=== PATIENT | female | born 1955 | race Caucasian/White ===

== ENCOUNTER 2018-11-24 15:22 | Emergency (ER) | payer OTHER ==
[2018-11-24 15:33] VITALS: BP 142/77; PULSE 106; O2SAT 96
[2018-11-24] MEDS ORDERED: XYLOCAINE 1% HCL 20 ML MDV ONE (16:01)
--- NOTE | 2018-11-24 16:37 | ERPHSYRPT ---
- History of Present Illness Source: patient Exam Limitations: no limitations Patient Subjective Stated Complaint: "I walked into a metal gait in the kitchen " it did not knock me out, I did not fall down". Triage Nursing Assessment: AAox3, color good, walked in, approx 3 cm laceration noted to top of forehead, minimal acrtive bleeding noted, lacerations cleansed with sterile gauze and nacl and antibacterial soap, Denies other injuries, denies loss of consciousness, perrla, resp easy, lungs clear. States last tetanus approx 5 years ago. Also c/o headache at this time, "vision ok" Physician History: Pt is a 63 y/o female that was working in the kitchen, and opened a gate, to get under. She tried to get under it, but her head hit the gate, and she had laceration on the top of her head. Pt presented to the ER. Pt denies all other complains. She did have a tetanus shot 5 years ago. Timing/Duration: today Quality: burning, painful Severity: mild Location: scalp Associated Symptoms: denies symptoms Allergies/Adverse Reactions: lisinopril Allergy (Mild, Verified 10/15/14 16:42) pear Allergy (Mild, Verified 06/24/17 10:02) Ekjvsee-Xju-Suk Reductase Inhibitor Allergy (Mild, Verified 10/15/14 16:42) Sulfa (Sulfonamide Antibiotics) Allergy (Mild, Verified 10/15/14 16:42) tuberculin, purified protein deriva [Tuberculin,Purif.Prot.Deriv.] Allergy (Mild , Verified 10/15/14 16:42) losartan [From Wyzaar] Adverse Reaction (Mild, Verified 06/24/17 10:02) Home Medications: Amlodipine Besylate 10 mg [Norvasc 10 MG] 10 mg PO DAILY 02/02/13 [History] Metformin HCl 850 mg [Glucophage 850 MG] 850 mg PO BID 02/02/13 [History] Aspirin 81 mg PO DAILY 10/28/13 [History] HydrALAzine HCL 25 MG TAB [Apresoline 25 MG TABLET] 50 mg PO BID 10/28/13 [History] Oxybutynin Chloride Xl 5 mg [Ditropan XL 5 MG] 5 mg PO BID 10/28/13 [ History] Fexofenadine HCl [Yelena Allergy] 60 mg PO DAILY PRN PRN 06/24/17 [History] Naproxen 0 mg Q8H PRN PRN 06/24/17 [History] Ranitidine HCl [Zantac] 150 mg PO DAILY PRN PRN 06/24/17 [History] Hx Tetanus, Diphtheria Vaccination/Date Given: Yes ("5 years ago") Hx Influenza Vaccination/Date Given: Yes Hx Pneumococcal Vaccination/Date Given: Yes Immunizations Up to Date: Yes - Review of Systems Constitutional: No Fever, No Chills Eyes: No Symptoms Ears, Nose, & Throat: No Symptoms Skin: Other (Laceration of 4cm of the scalp. Pain present.) - Past Medical History Pertinent Past Medical History: Yes Neurological History: No Pertinent History ENT History: Cataracts, Macular Degeneration Cardiac History: High Cholesterol, Hypertension Respiratory History: Asthma Endocrine Medical History: Diabetes Type II, Hypothyroidism Musculoskeletal History: Osteoarthritis GI Medical History: No Pertinent History, GERD History: No Pertinent History Psycho-Social History: No Pertinent History Female Reproductive Disorders: No Pertinent History Other Medical History: THYROID DISEASE - Past Surgical History Past Surgical History: Yes Neuro Surgical History: No Pertinent History Cardiac: No Pertinent History Gastrointestinal: Cholecystectomy Genitourinary: No Pertinent History Female Surgical History: Hysterectomy, Tubal Ligation Other Surgical History: partial thyroid gland - Social History Smoking Status: Never smoker Exposure to second hand smoke: Yes Alcohol Use: None Drug Use: none Patient Lives Alone: No Significant Family History: diabetes - Female History Hx Last Menstrual Period: na Hx Now: No - Nursing Vital Signs Nursing Vital Signs: Initial Vital Signs Temperature 98.2 F 11/24/18 15:23 Pulse Rate 106 H 11/24/18 15:23 Respiratory Rate 22 11/24/18 15:23 Blood Pressure 142/77 11/24/18 15:23 O2 Sat by Pulse Oximetry 96 11/24/18 15:23 Pain Scale Pain Intensity 8 - Physical Exam General Appearance: no apparent distress, alert Eye Exam: PERRL/EOMI, eyes nml inspection Ears, Nose, Throat Exam: normal ENT inspection, pharynx normal, moist mucous membranes Neck Exam: normal inspection, non-tender, supple, full range of motion Neurologic Exam: alert, oriented x 3, cooperative, normal mood/affect, sensation nml, No motor deficits Skin Exam: laceration (4cm of the top of the head) SpO2 Interpretation: normal SpO2: 96 O2 Delivery: Room Air Procedures - Laceration/Wound Repair Upper Anterior Head Wound Location: head Wound Length (cm): 4 Wound Explored: contaminated Irrigated: Yes Hibiclens Prep: Yes Anesthesia: 1% Lidocaine Wound Debrided: minimal Wound Repaired With: Daria (4 daria) Sterile Dressing Applied?: Yes - Course Nursing assessment & vital signs reviewed: Yes Ordered Tests: Medication Summary Discontinued Medications Generic Name Dose Route Start Last Admin Trade Name Mejia PRN Reason Stop Dose Admin Lidocaine HCl Confirm 11/24/18 16:01 Xylocaine 1% Hcl 20 Ml Mdv Administered 11/24/18 16:02 Dose 1 ml .R[employer]TE .[employer]MED ONE - Progress Progress: unchanged Progress Note: 11/24/18 16:41 Pt presented to the ED with a laceration. The area was cleaned and washed. I numbed the pt with 3ml of Lido. When she was comfortable 4 daria placed. The pt tolerated procedure well. A sterile dressing and Bactroban oint were placed. ABX will be e-scribed for the pt. Discussed with : Adalberto Will see patient in: office Counseled pt/family regarding: need for follow-up (F/U in 7-10 days, for daria removal.) - Departure Time of Disposition: 16:45 Departure Disposition: Home Clinical Impression: Laceration of scalp Condition: Stable Critical Care Time: No Referrals: AMARJIT RUBALCAVA MD [Primary Care Provider] - Instructions: Laceration Repair With [place] ([place]) Additional Instructions: Finish ABX as ordered. Keep dressing clean and dry. F/U with PCP in 7-10 days for daria removal. Prescriptions: Cephalexin Mh 500 mg [Keflex 500 mg] 500 mg PO TID #30 capsule
[2018-11-25] MEDS ORDERED: XYLOCAINE 1% HCL 20 ML MDV IJ ONE (08:55)
== END 2018-11-24 17:40 | disposition home or self-care (01) ==
LOC: ED 15:22
DX: S01.01XA Laceration without foreign body of scalp, initial encounter (principal); W22.09XA Striking against other stationary object, initial encounter; Y93.9 Activity, unspecified; Y92.000 Kitchen of unspecified non-institutional (private) residence as the place of occurrence of the external cause; R51 Headache
CPT/HCPCS: 12002; 99283

== ENCOUNTER 2019-03-13 08:58 | Emergency (ER) | payer OTHER ==
[2019-03-13 09:46] VITALS: PULSE 80; O2SAT 99
[2019-03-13] MEDS ORDERED: TYLENOL 325 MG PO STA (09:57)
--- NOTE | 2019-03-13 11:15 | ERPHSYRPT ---
- History of Present Illness Time Seen by Provider: 03/13/19 10:00 Source: patient Exam Limitations: clinical condition Patient Subjective Stated Complaint: pt here for pain left hand and wrist, pt was walking dog and it went after a rabbit and pulled pt down, Triage Nursing Assessment: pt alert, walked in, resp easy, skin w/d/p. has bruising to right arm and bruising and swelling to left wrist, has strong radial pulse Physician History: PATIENT STATES WHILE WALKING HER SON'S DOG, WAS PULLED BY LEASE AND FELL TO GROUND SUSTAINED INJURY TO HER LEFT WRIST. PATIENT COMPLAINS OF PAIN OR SWELLING. DENIES ASSOCIATED HEAD, NECK OR BACK INJURY. Occurred: just prior to arrival Method of Injury: direct blow Quality: constant Severity of Pain-Max: moderate Severity of Pain-Current: moderate Extremities Pain Location: wrist: left Modifying Factors: Improves With: movement Associated Symptoms: none Allergies/Adverse Reactions: lisinopril Allergy (Mild, Verified 03/13/19 09:46) pear Allergy (Mild, Verified 03/13/19 09:46) Hxatjnw-Wwx-Wxw Reductase Inhibitor Allergy (Mild, Verified 03/13/19 09:46) Sulfa (Sulfonamide Antibiotics) Allergy (Mild, Verified 03/13/19 09:46) tuberculin, purified protein deriva [Tuberculin,Purif.Prot.Deriv.] Allergy (Mild , Verified 03/13/19 09:46) losartan [From Cozaar] Adverse Reaction (Mild, Verified 03/13/19 09:46) Home Medications: Amlodipine Besylate 10 mg [Norvasc 10 MG] 10 mg PO DAILY 02/02/13 [History] Metformin HCl 850 mg [Glucophage 850 MG] 850 mg PO BID 02/02/13 [History] Aspirin 81 mg PO DAILY 10/28/13 [History] HydrALAzine HCL 25 MG TAB [Apresoline 25 MG TABLET] 50 mg PO BID 10/28/13 [History] Oxybutynin Chloride Xl 5 mg [Ditropan XL 5 MG] 5 mg PO BID 10/28/13 [ History] Fexofenadine HCl [Yelena Allergy] 60 mg PO DAILY PRN PRN 06/24/17 [History] Naproxen 0 mg Q8H PRN PRN 06/24/17 [History] raNITIdine HCl [Zantac] 150 mg PO DAILY PRN PRN 06/24/17 [History] Hx Tetanus, Diphtheria Vaccination/Date Given: Yes ("5 years ago") Hx Influenza Vaccination/Date Given: Yes Hx Pneumococcal Vaccination/Date Given: Yes Immunizations Up to Date: Yes - Review of Systems Constitutional: No Symptoms Musculoskeletal: Injury, Joint Pain, Joint Swelling - Past Medical History Pertinent Past Medical History: Yes Neurological History: No Pertinent History ENT History: Cataracts, Macular Degeneration Cardiac History: High Cholesterol, Hypertension Respiratory History: Asthma Endocrine Medical History: Diabetes Type II, Hypothyroidism Musculoskeletal History: Osteoarthritis GI Medical History: GERD History: No Pertinent History Psycho-Social History: No Pertinent History Female Reproductive Disorders: No Pertinent History Other Medical History: THYROID DISEASE,shingles - Past Surgical History Past Surgical History: Yes Neuro Surgical History: No Pertinent History Cardiac: No Pertinent History Gastrointestinal: Cholecystectomy Genitourinary: No Pertinent History Female Surgical History: Hysterectomy, Tubal Ligation Other Surgical History: partial thyroid gland - Social History Smoking Status: Never smoker Exposure to second hand smoke: Yes Alcohol Use: None Drug Use: none Patient Lives Alone: No Significant Family History: diabetes - Female History Hx Last Menstrual Period: post Hx Now: No - Nursing Vital Signs Nursing Vital Signs: Initial Vital Signs Temperature 97.0 F 03/13/19 09:40 Pulse Rate 80 03/13/19 09:40 Respiratory Rate 16 03/13/19 09:40 Blood Pressure 128/77 03/13/19 09:40 O2 Sat by Pulse Oximetry 99 03/13/19 09:40 Pain Scale Pain Intensity 8 - Physical Exam General Appearance: no apparent distress Wrist Exam: ecchymosis (OVER NAVICULAR LEFT WRIST), limited ROM, pain, soft tissue tenderness Neuro/Tendon Exam: normal sensation Mental Status Exam: alert, oriented x 3 SpO2 Interpretation: normal SpO2: 99 Procedures - Splinting Location of Splint: Left, Wrist Type of Splint: Other (THUMB SPICAL ORTHOGLASS SPLINT) Pre-Proc Neuro Vasc Exam: normal Post-Proc Neuro Vasc Exam: neurovascular intact - Radiology Exams Left Wrist X-ray Interpretation: Interpreted by me (NONDISPLACED LEFT NAVICULAR FRACTURE) Ordered Tests: Active Orders 24 hr Category Date Time Status Splint STAT Care 03/13/19 10:54 Ordered WRIST (MIN 3 VIEWS) Stat Exams 03/13/19 09:58 Taken Medication Summary Discontinued Medications Generic Name Dose Route Start Last Admin Trade Name Mejia PRN Reason Stop Dose Admin Acetaminophen 650 mg 03/13/19 09:57 Tylenol 325 Mg PO 03/13/19 09:58 STAT STA - Progress Progress Note: 03/13/19 11:17 ORTHOGLASS LEFT THUMB SPICA SPLINT, REFUSES ANALGESICS 03/13/19 11:21 Counseled pt/family regarding: diagnosis, need for follow-up, rad results - Departure Departure Disposition: Home Clinical Impression: LEFT NAVICULAR FRACTUE Condition: Stable Critical Care Time: No Referrals: [facility] [Primary Care Provider] - Additional Instructions: TYLENOL OR MOTRIN NEEDED FOR PAIN. FOLLOWUP WITH [facility] THURSDAY MARCH 14, 2019 AT 9AM, CALL FOR APPOINTMENT , TAKE COPY OF XRAY DISC TO APPOINTMENT
[2019-03-13 11:28] VITALS: BP 131/74
[2019-03-13] MEDS ORDERED: TYLENOL 325 MG ONE (11:45)
--- NOTE | 2019-03-13 20:18 | XRAY ---
Indication: Pain and bruising following fall. Comparison: February 02, 2013. 3 views of the left wrist demonstrates again osteopenia with progressive worsening advanced 1st metacarpal multangular degenerative changes. Mild soft tissue swelling. No other bony, articular, or soft tissue abnormalities.
== END 2019-03-13 12:10 | disposition home or self-care (01) ==
LOC: ED 08:58
DX: S62.002A Unspecified fracture of navicular [scaphoid] bone of left wrist, initial encounter for closed fracture (principal); W54.8XXA Other contact with dog, initial encounter
CPT/HCPCS: 29126; 73110; 99283; A9270-GY

== ENCOUNTER 2020-03-27 10:24 | Emergency (ER) | payer OTHER, MEDICARE ==
--- NOTE | 2020-03-27 10:28 | ERPHSYRPT ---
- History of Present Illness Time Seen by Provider: 03/27/20 10:28 Historian: patient Exam Limitations: no limitations Physician History: This is a 64-year-old white female who has a history of hypertension, diabetes and has had mini strokes in the past. She also takes Plavix. Patient presents with shortness of breath and mild chest pain after being exposed to raid bedbug and harris fogger. Patient set the fogger is off and breathe in some of the chemicals. She immediately began having some shortness of breath, felt as though she was panicking and then noticed some chest pain present. She arrives to the emergency department with less chest pain but still mildly present, and less shortness of breath but still present. Patient denies abdominal pain and denies nausea vomiting diarrhea. Patient did not have any chest pain prior to her exposure to the fogger. She did not have shortness of breath prior to the fogger. Poison control was notified and they stated that she did not need to be observed for an extended period of time she just needed her symptoms evaluated and managed accordingly. Patient has no known cardiac history. Timing/Duration: today Activities at Onset: other (Accidental exposure to raid insect exposure) Location: substernal, central Chest Pain Radiation: no radiation Severity of Pain-Max: mild Severity of Pain-Current: mild Associated Symptoms: shortness of breath, cough Prior Chest Pain/Cardiac Workup: no prior chest pain, no prior cardiac workup, non-cardiac Nitro Today/Relief: no nitro taken today Aspirin Treatment Today: no aspirin today Allergies/Adverse Reactions: lisinopril Allergy (Mild, Verified 03/27/20 11:02) pear Allergy (Mild, Verified 03/27/20 11:02) [id number] Reductase Inhibitor Allergy (Mild, Verified 03/27/20 11:02) Sulfa (Sulfonamide Antibiotics) Allergy (Mild, Verified 03/27/20 11:02) tuberculin, purified protein deriva [Tuberculin,Purif.Prot.Deriv.] Allergy (Mild, Verified 03/27/20 11:02) losartan [From Cozaar] Adverse Reaction (Mild, Verified 03/27/20 11:02) Home Medications: Amlodipine Besylate 10 mg [Norvasc 10 MG] 10 mg PO DAILY 02/02/13 [History] Metformin HCl 850 mg [Glucophage 850 MG] 850 mg PO BID 02/02/13 [History] Aspirin 81 mg PO DAILY 10/28/13 [History] HydrALAzine HCL 25 MG TAB [Apresoline 25 MG TABLET] 50 mg PO BID 10/28/13 [History] Fexofenadine HCl [Yelena Allergy] 60 mg PO DAILY PRN PRN 06/24/17 [History] Naproxen 0 mg Q8H PRN PRN 06/24/17 [History] Clopidogrel Bisulfate 75 mg [PLAVIX 75 MG Tablet] 75 mg PO DAILY 03/27/20 [History] Oxybutynin Chloride Xl 5 mg [Ditropan XL 5 MG] 5 mg PO DAILY 03/27/20 [History] Oxymetazoline HCl [Nasal Mondovi] 30 ml NS DAILY 03/27/20 [History] Hx Tetanus, Diphtheria Vaccination/Date Given: Yes ("5 years ago") Hx Influenza Vaccination/Date Given: Yes Hx Pneumococcal Vaccination/Date Given: No Travel Risk - International Travel Have you traveled outside of the country in past 3 weeks: No - Coronavirus Screening Are you exhibiting any of the following symptoms?: Yes Symptoms: Cough: New Onset, Shortness of Breath Close contact with a COVID-19 positive Pt in past 14-21 Days: No - Review of Systems Constitutional: No Symptoms Eyes: No Symptoms Ears, Nose, & Throat: No Symptoms Respiratory: Cough, Dyspnea Cardiac: Chest Pain Abdominal/Gastrointestinal: No Symptoms Genitourinary Symptoms: No Symptoms Musculoskeletal: No Symptoms Skin: No Symptoms Neurological: No Symptoms Psychological: No Symptoms Endocrine: No Symptoms Hematologic/Lymphatic: No Symptoms Immunological/Allergic: No Symptoms All Other Systems: Reviewed and Negative - Past Medical History Pertinent Past Medical History: No Neurological History: No Pertinent History ENT History: No Pertinent History, Cataracts, Macular Degeneration Cardiac History: High Cholesterol, Hypertension Respiratory History: No Pertinent History, Asthma Endocrine Medical History: Diabetes Type II, Hypothyroidism Musculoskeletal History: No Pertinent History, Osteoarthritis GI Medical History: No Pertinent History, GERD History: No Pertinent History Psycho-Social History: No Pertinent History Female Reproductive Disorders: No Pertinent History Other Medical History: THYROID DISEASE,shingles - Past Surgical History Past Surgical History: Yes Neuro Surgical History: No Pertinent History Cardiac: No Pertinent History Respiratory: No Pertinent History Gastrointestinal: Cholecystectomy Genitourinary: No Pertinent History Musculoskeletal: No Pertinent History Female Surgical History: Hysterectomy, Tubal Ligation Other Surgical History: Partial Thyroidectomy unknown side. - Social History Smoking Status: Never smoker Exposure to second hand smoke: Yes Alcohol Use: None Drug Use: none Patient Lives Alone: No Significant Family History: diabetes - Nursing Vital Signs Nursing Vital Signs: Initial Vital Signs Temperature 97.9 F 03/27/20 10:25 Pulse Rate 115 H 03/27/20 10:25 Respiratory Rate 24 03/27/20 10:25 Blood Pressure 111/81 03/27/20 10:25 O2 Sat by Pulse Oximetry 95 03/27/20 10:25 Pain Scale Pain Intensity 5 - Physical Exam General Appearance: mild distress, alert, anxiety Eye Exam: PERRL/EOMI, eyes nml inspection Ears, Nose, Throat Exam: normal ENT inspection, moist mucous membranes Neck Exam: normal inspection, non-tender, supple, full range of motion Respiratory Exam: normal breath sounds, chest tenderness, lungs clear, airway intact, No respiratory distress, No rhonchi, No wheezing, No stridor Cardiovascular Exam: tachycardia Gastrointestinal/Abdomen Exam: soft, normal bowel sounds, No tenderness Pelvic Exam: not done Rectal Exam: not done Back Exam: normal inspection, normal range of motion, No CVA tenderness, No vertebral tenderness Extremity Exam: normal inspection, normal range of motion, pelvis stable Neurologic Exam: alert, oriented x 3, cooperative, director public II-XII nml as tested, nml cerebellar function, nml station & gait, sensation nml Skin Exam: normal color, warm, dry Lymphatic Exam: No adenopathy SpO2 Interpretation: normal O2 Delivery: Room Air - Course Nursing assessment & vital signs reviewed: Yes EKG Interpreted by Me: RATE, Sinus Tach, NORMAL AXIS, LAFB, NORMAL INTERVALS, NORMAL QRS, Other (When compared to EKG dated May 24, 2019, there is new sinus tachycardia, new left anterior fascicular block and new borderline ST elevation in lateral leads.) Ordered Tests: Active Orders 24 hr Category Date Time Status Crude Oil Driver STAT Care 03/27/20 10:29 Active EKG-ER Only STAT Care 03/27/20 10:28 Active IV Insertion STAT Care 03/27/20 10:28 Active Oxygen-ED Only Nasal Cannula 2 lpm Care 03/27/20 11:16 Active Pulse Oximetry (ED) STAT Care 03/27/20 10:28 Active CHEST 1 VIEW (PORTABLE) Stat Exams 03/27/20 10:28 Completed CBC W DIFF Stat Lab 03/27/20 10:30 Completed CMP Stat Lab 03/27/20 10:30 Completed D-DIMER QUANTITATIVE Stat Lab 03/27/20 10:30 Completed Lactic Acid Stat Lab 03/27/20 11:19 Completed Lactic Acid Stat Lab 03/27/20 13:23 Completed NT PRO BNP Stat Lab 03/27/20 10:30 Completed PROTIME WITH INR Stat Lab 03/27/20 10:30 Completed TROPONIN Q3H Lab 03/27/20 10:30 Completed TROPONIN Q3H Lab 03/27/20 13:45 Completed TROPONIN Q3H Lab 03/27/20 16:30 Ordered TROPONIN Q3H Lab 03/27/20 19:30 Ordered TROPONIN Q3H Lab 03/27/20 22:30 Ordered Respiratory Therapy Assessment DAILY RT 03/27/20 10:58 Active Medication Summary Generic Name Dose Route Start Last Admin Trade Name Freq PRN Reason Stop Dose Admin Sodium Chloride 1,000 mls @ 100 mls/hr 03/27/20 10:30 03/27/20 10:40 Sodium Chloride 0.9% 1000 Ml IV 04/26/20 10:29 100 mls/hr .Q10H CHAD Administration Discontinued Medications Generic Name Dose Route Start Last Admin Trade Name Freq PRN Reason Stop Dose Admin Albuterol Sulfate 2.5 mg 03/27/20 10:43 03/27/20 10:57 Proventil 2.5 Mg/3 Ml Neb IH 03/27/20 10:44 2.5 mg STAT ONE Administration Albuterol Sulfate Confirm 03/27/20 10:50 Proventil 2.5 Mg/3 Ml Neb Administered 03/27/20 10:51 Dose 2.5 mg IH .STK-MED ONE Methylprednisolone Sodium Succinate 125 mg 03/27/20 10:42 03/27/20 10:47 Solu-Medrol 125 Mg IV 03/27/20 10:43 125 mg STAT ONE Administration Methylprednisolone Sodium Succinate Confirm 03/27/20 10:46 Solu-Medrol 125 Mg Administered 03/27/20 10:47 Dose 125 mg .ROUTE .STK-MED ONE Lab/Rad Data: Laboratory Result Diagrams 03/27/20 10:30 03/27/20 10:30 Laboratory Results 03/27/20 03/27/20 03/27/20 Range/Units 13:45 13:23 11:19 WBC (4.0-10.5) K/mm3 RBC (4.1-5.4) M/mm3 Hgb (12.0-16.0) gm/dl Hct (35-47) % MCV (78-100) fl MCH (26-32) pg MCHC (32-36) g/dl RDW (11.5-14.0) % Plt Count (150-450) K/mm3 MPV (7.5-11.0) fl Gran % (36.0-66.0) % Eos # (Auto) (0-0.5) Absolute Lymphs (auto) (1.0-4.6) Absolute Monos (auto) (0.0-1.3) Lymphocytes % (24.0-44.0) % Monocytes % (0.0-12.0) % Eosinophils % (0.00-5.0) % Basophils % (0.0-0.4) % Absolute Granulocytes (1.4-6.9) Basophils # (0-0.4) PT (9.95-12.35) SECONDS INR (0.8-3.0) D-Dimer (215-500) ng/mL Sodium (137-145) mmol/L Potassium (3.5-5.1) mmol/L Chloride (98-107) mmol/L Carbon Dioxide (22-30) mmol/L Anion Gap (5-15) MEQ/L BUN (7-17) mg/dL Creatinine (0.52-1.04) mg/dL Estimated GFR ML/MIN Glucose (74-106) mg/dL Lactic Acid 0.8 3.6 H (0.4-2.0) Calcium (8.4-10.2) mg/dL Total Bilirubin (0.2-1.3) mg/dL AST (14-36) U/L ALT (0-35) U/L Alkaline Phosphatase (38-126) U/L Troponin I 1.400 H* (0.000-0.034) ng/mL NT-Pro-B Natriuret Pep (0-900) pg/mL Serum Total Protein (6.3-8.2) g/dL Albumin (3.5-5.0) g/dL 03/27/20 03/27/20 03/27/20 Range/Units 10:30 10:30 10:30 WBC (4.0-10.5) K/mm3 RBC (4.1-5.4) M/mm3 Hgb (12.0-16.0) gm/dl Hct (35-47) % MCV (78-100) fl MCH (26-32) pg MCHC (32-36) g/dl RDW (11.5-14.0) % Plt Count (150-450) K/mm3 MPV (7.5-11.0) fl Gran % (36.0-66.0) % Eos # (Auto) (0-0.5) Absolute Lymphs (auto) (1.0-4.6) Absolute Monos (auto) (0.0-1.3) Lymphocytes % (24.0-44.0) % Monocytes % (0.0-12.0) % Eosinophils % (0.00-5.0) % Basophils % (0.0-0.4) % Absolute Granulocytes (1.4-6.9) Basophils # (0-0.4) PT 11.8 (9.95-12.35) SECONDS INR 1.04 (0.8-3.0) D-Dimer 284 (215-500) ng/mL Sodium 139 (137-145) mmol/L Potassium 3.9 (3.5-5.1) mmol/L Chloride 110 H (98-107) mmol/L Carbon Dioxide 19 L (22-30) mmol/L Anion Gap 14.4 (5-15) MEQ/L BUN 12 (7-17) mg/dL Creatinine 0.56 (0.52-1.04) mg/dL Estimated GFR > 60.0 ML/MIN Glucose 187 H (74-106) mg/dL Lactic Acid (0.4-2.0) Calcium 9.7 (8.4-10.2) mg/dL Total Bilirubin 0.60 (0.2-1.3) mg/dL AST 20 (14-36) U/L ALT 14 (0-35) U/L Alkaline Phosphatase 92 (38-126) U/L Troponin I 0.021 (0.000-0.034) ng/mL NT-Pro-B Natriuret Pep 82.6 (0-900) pg/mL Serum Total Protein 7.6 (6.3-8.2) g/dL Albumin 4.4 (3.5-5.0) g/dL 03/27/20 Range/Units 10:30 WBC 11.3 H (4.0-10.5) K/mm3 RBC 4.82 (4.1-5.4) M/mm3 Hgb 13.1 (12.0-16.0) gm/dl Hct 40.7 (35-47) % MCV 84.4 (78-100) fl MCH 27.2 (26-32) pg MCHC 32.2 (32-36) g/dl RDW 14.6 H (11.5-14.0) % Plt Count 387 (150-450) K/mm3 MPV 9.8 (7.5-11.0) fl Gran % 66.3 H (36.0-66.0) % Eos # (Auto) 0.21 (0-0.5) Absolute Lymphs (auto) 2.99 (1.0-4.6) Absolute Monos (auto) 0.57 (0.0-1.3) Lymphocytes % 26.4 (24.0-44.0) % Monocytes % 5.0 (0.0-12.0) % Eosinophils % 1.9 (0.00-5.0) % Basophils % 0.4 (0.0-0.4) % Absolute Granulocytes 7.52 H (1.4-6.9) Basophils # 0.04 (0-0.4) PT (9.95-12.35) SECONDS INR (0.8-3.0) D-Dimer (215-500) ng/mL Sodium (137-145) mmol/L Potassium (3.5-5.1) mmol/L Chloride (98-107) mmol/L Carbon Dioxide (22-30) mmol/L Anion Gap (5-15) MEQ/L BUN (7-17) mg/dL Creatinine (0.52-1.04) mg/dL Estimated GFR ML/MIN Glucose (74-106) mg/dL Lactic Acid (0.4-2.0) Calcium (8.4-10.2) mg/dL Total Bilirubin (0.2-1.3) mg/dL AST (14-36) U/L ALT (0-35) U/L Alkaline Phosphatase (38-126) U/L Troponin I (0.000-0.034) ng/mL NT-Pro-B Natriuret Pep (0-900) pg/mL Serum Total Protein (6.3-8.2) g/dL Albumin (3.5-5.0) g/dL - Progress Progress: improved, re-examined Air Movement: good Progress Note: 03/27/20 12:54 Patient is reexamined. She is feeling well. She no longer has shortness of breath or chest pain. She is going to stay in the emergency department for repeat lactic acid and repeat troponin. If these are normal she will be discharged to home with instructions to continue using her inhalers. She is to avoid going back into the home and avoid exposure. She does not want steroids for home. 03/27/20 12:56 Chest x-ray reveals no acute pulmonary process 03/27/20 14:59 Medical decision making: This patient states that she does not have any chest pain when I reexamined her. However, her repeat troponin is significantly elevated. Patient is not wanting to be admitted or transferred. She states that she had an appointment with Dr. Martins last week but could not make it. She states that she wants to go home and will follow up with his office tomorrow. I told her that the heart enzyme is elevated this could mean that she is having acute heart attack and she could from this. She is still adamant that she wants to leave and will sign AMA forms. We will obtain EKG and discussed this with the patient's son and see if she makes a different decision. If she does not, we will have her sign AMA forms. 03/27/20 15:01 Repeat EKG performed at 259 reveals sinus tachycardia with a heart rate of 114 there is left axis deviation. Otherwise no significant changes. No evidence of any acute ST depression or elevation. 03/27/20 15:59 Patient has now decided that she will be transferred to [facility] via ambulance. I spoke with Dr. Sundeep Martins, her home theatre technician. He accepts the patient in transfer. We will contact the transfer center at [facility]. We will provide the patient with Lovenox per Dr. Martins. Blood Culture(s) Obtained: No Antibiotics given: No Counseled pt/family regarding: lab results, diagnosis, need for follow-up, rad results - Departure Departure Disposition: Transfer Clinical Impression: Chest pain, Elevated troponin Condition: Stable Critical Care Time: Yes Critical Care Time(excluding separately billable procedures): Critical 30-74 mins Referrals: MALVIN BREWER NP [Primary Care Provider] -
[2020-03-27] MEDS ORDERED: Sodium Chloride 0.9% 1000 ML 1,000 ML IV SCH (10:30)
[2020-03-27] MEDS ORDERED: Sodium Chloride 0.9% 1000 ML 1,000 ML ONE (10:39)
[2020-03-27] MEDS ORDERED: solu-MEDROL 125 MG IV ONE (10:42)
[2020-03-27] MEDS ORDERED: PROVENTIL 2.5 MG/3 ML NEB IH ONE ×2 (10:43→10:50)
[2020-03-27] MEDS ORDERED: solu-MEDROL 125 MG ONE (10:46)
[2020-03-27 10:47] LABS: Absolute Neutrophil Ct (ANC) 7.52 (1.4-6.9); BASOPHIL % 0.4 % (0.0-0.4); Basophil (Absolute #) 0.04 (0-0.4); Eosinophil % 1.9 % (0.00-5.0); Eosinophil (Absolute #) 0.21 (0-0.5); Hematocrit 40.7 % (35-47); Hemoglobin 13.1 gm/dl (12.0-16.0); Lymphocyte (Absolute #) 2.99 (1.0-4.6); Lymphocytes % 26.4 % (24.0-44.0); Mean Cell Volume 84.4 fl (78-100); Mean Corpuscular Hemoglobin 27.2 pg (26-32); Mean Corpuscular Hgb Concent. 32.2 g/dl (32-36); Mean Platelet Volume 9.8 fl (7.5-11.0); Monocyte (Absolute #) 0.57 (0.0-1.3); Neutrophil % 66.3 % (36.0-66.0); Platelet Count 387 K/mm3 (150-450); Red Blood Count 4.82 M/mm3 (4.1-5.4); Red Cell Distribution Width 14.6 % (11.5-14.0); White Blood Count 11.3 K/mm3 (4.0-10.5)
--- NOTE | 2020-03-27 11:00 | XRAY ---
Indication: Short of breath. Chest pain. Comparison: September 15, 2019. Portable chest less inflated again demonstrating normal heart and lungs. Bony thorax intact again with mild osteopenia and degenerative changes. No new/acute findings.
[2020-03-27 11:03] LABS: INR 1.04 (0.8-3.0); PROTIME 11.8 SECONDS (9.95-12.35)
[2020-03-27 11:17] LABS: ALBUMIN 4.4 g/dL (3.5-5.0); ALKALINE PHOSPHATASE 92 U/L (38-126); ANION GAP 14.4 MEQ/L (5-15); BLOOD UREA NITROGEN 12 mg/dL (7-17); CHLORIDE 110 mmol/L (98-107); Calcium 9.7 mg/dL (8.4-10.2); Carbon Dioxide 19 mmol/L (22-30); Creatinine 1 0.56 mg/dL (0.52-1.04); Glucose 187 mg/dL (74-106); NT PRO BNP 82.6 pg/mL (0-900); Potassium 3.9 mmol/L (3.5-5.1); SGOT/AST 20 U/L (14-36); SGPT/ALT 14 U/L (0-35); SODIUM 139 mmol/L (137-145); Total Protein 7.6 g/dL (6.3-8.2)
[2020-03-27] MEDS ORDERED: ENOXAPARIN SODIUM SQ ONE ×2 (15:58→16:00)
[2020-03-27 16:37] VITALS: BP 125/77; PULSE 116; O2SAT 95
== END 2020-03-27 16:45 | disposition short-term general hospital (02) ==
LOC: ED 10:24
DX: R07.9 Chest pain, unspecified (principal); R74.8 Abnormal levels of other serum enzymes
CPT/HCPCS: 36000; 36415; 71045; 80053; 83605; 83880; 84484; 85025; 85379; 85610; 93005; 93041; 94640; 94760; 96372; 96374; 99285; 99291; J1650; J2930; J7609; A9270-GY

== ENCOUNTER 2020-06-04 08:43 | Day surgery (SDC) | payer MEDICARE, OTHER ==
[~2020-06-04 08:43] MED LIST: DIPRIVAN 200 MG/20 ML IV ONE; Lactated Ringers 1,000 ML IV SCH
--- NOTE | 2020-06-04 09:18 | HP ---
DATE OF SURGERY: 06/04/2020 HISTORY OF PRESENT ILLNESS: The patient is a 64 year old with food getting stuck in upper esophagus. No prior upper endoscopy. I feel she would benefit from endoscopy possible dilatation, possible biopsy. PAST MEDICAL HISTORY: Hypertension, diabetes. PAST SURGICAL HISTORY: Cholecystectomy in the past. Half of her thyroid removed in the past. Hysterectomy with tubal in the past. MEDICATIONS: Metformin, hydralazine, oxybutynin, metoprolol, fexofenadine, Tums, Tylenol, clopidogrel, fluticasone. ALLERGIES: AMOXICILLIN. MELOXICAM. STATINS. LISINOPRIL. COZAAR. PEARS GIVE HER A RASH. FAMILY HISTORY: Breast cancer, diabetes. SOCIAL HISTORY: No smoking. REVIEW OF SYSTEMS: Fourteen systems reviewed. Negative or noncontributory as above and per preadmission questionnaire. PHYSICAL EXAMINATION: GENERAL: No acute distress. HEENT: Sclerae nonicteric. NECK: No JVD. CHEST: Equal excursion, nonlabored breathing. CVS: Regular rate and rhythm. ABDOMEN: Soft. No peritoneal signs. EXTREMITIES: No significant edema. NEURO: Alert, oriented, moving extremities symmetrically. No gross motor deficits noted. PSYCH: Appropriate mood and affect. IMPRESSION: Dysphagia. Food getting stuck upper esophagus. I feel the patient would benefit from EGD, possible biopsy, possible dilatation. Risks and benefits explained in detail including but not limited to bleeding or infection, risk of bowel injury or perforation possibly requiring open procedure, risk of missed or nondiagnosis or incomplete exam possibly requiring barium swallow, other studies or procedures, possibility of failure to improve, that it might be a little bit more dangerous and hard to dilate, possibility dilatation improves her swallowing she may need it repeated again in the future. She may have a functional or neurologic issue that dilatation may not benefit the dysphagia. She understands. General risk of anesthesia, deep venous thrombosis, pulmonary embolism, pneumonia risk of aspiration but not limited to, risk of perforation possibly requiring major procedure or open procedure. She understands and agrees to the planned procedure and will proceed with EGD with possible biopsy, possible dilatation as an outpatient.
[2020-06-04 12:16] VITALS: O2SAT 96
[2020-06-04 12:19] VITALS: BP 132/74; PULSE 68
--- NOTE | 2020-06-04 12:42 | OP ---
SURGERY DATE/TIME: 06/04/2020 1038 PREOPERATIVE DIAGNOSIS: Dysphagia. POSTOPERATIVE DIAGNOSES: 1) Proximal esophageal narrowing, stricture and spasm without evidence of any mass (benign appearing). 2) Short segment distal gastroesophagitis to evaluate for Garcias's esophagus. 3) Mild gastritis. PROCEDURES: 1) EGD with cold biopsy of antrum for Helicobacter pylori. 2) Cold biopsy distal esophagus. 3) Proximal esophageal dilatation of symptomatic narrowing and stricture (size 20 balloon dilator). SURGEON: Dr. Darrell Sánchez. ANESTHESIA: MAC. ESTIMATED BLOOD LOSS: Minimal. INDICATIONS: As noted above. Risks and benefits explained in detail and not limited to and consent obtained. DESCRIPTION OF PROCEDURE AND FINDINGS: The patient is taken to the endoscopy room. MAC anesthesia introduced. After official time out and no disagreement with planned procedure, a bite block positioned. Video gastroscope easily passed in the oropharynx. There was a proximal esophageal narrowing, was able to just get the scope passed there. There did not appear to be any evidence of any lesion but appeared to be a narrowing and stricture there appeared to be benign in nature. There did not appear to be anything to biopsy but given her symptoms there, it was felt she warranted dilatation. The scope is carefully passed down through the patent pylorus to the junction of the second and third portion of the duodenum. Third, second and first portion of the duodenum grossly unremarkable. No signs of any obvious masses or ulcer. The scope pulled back into the stomach. She did have some mild gastric erythema consistent with some minimal to mild gastritis. Cold biopsy taken to evaluate for Helicobacter pylori. Good hemostasis noted. On retroflex there was maybe just a slight hiatal hernia, slight weakness around the scope but no evidence of any large hiatal hernia able to be visualized endoscopically. Scope straightened. Gastroesophageal junction about 40 cm. There was a short segment of little, tiny fingerlettes of salmon pink mucosa consistent with distal gastroesophagitis. Cold biopsy taken to evaluate for presence or absence of any obvious Garcias's esophagus. Good hemostasis noted. There was some brief ooze but had good hemostasis at the end of the procedure. The scope pulled back up in the narrowed area again. There were no signs of any masses or lesions that warranted any biopsy. It was felt this area should be dilated. The scope passed back down in the stomach. A 20 balloon catheter carefully advanced in the open space of the stomach and the pulled back up to proximal esophageal narrowing carefully inserted first stage for 45 seconds balloon inflation, second stage size 19 for 45 seconds, final stage size 20 balloon dilator for 2 minutes. The balloon was then decompressed and removed. The scope much more easily passed through this area back down in the stomach. The distal esophageal biopsy site had good hemostasis at this point. The scope pulled back up to proximal esophagus. There was minimal mucosal abrasions from the dilatation. No evidence of any full thickness issues or injury. The scope is withdrawn. There is no family available to discuss the findings with.
== END 2020-06-04 12:18 | disposition home or self-care (01) ==
LOC: SDC 08:43
PROVIDERS: ATTEND Surgery
DX: K22.2 Esophageal obstruction (principal); K22.4 Dyskinesia of esophagus; K29.70 Gastritis, unspecified, without bleeding; K20.9 Esophagitis, unspecified; E11.9 Type 2 diabetes mellitus without complications; I10 Essential (primary) hypertension; Z79.899 Other long term (current) drug therapy
CPT/HCPCS: 82962; C1726; J2704

== ENCOUNTER 2021-07-05 16:00 | Emergency (ER) | payer MEDICARE ==
[2021-07-05 17:16] VITALS: PULSE 96; O2SAT 98
--- NOTE | 2021-07-05 17:30 | ERPHSYRPT ---
- History of Present Illness Source: patient Exam Limitations: no limitations Patient Subjective Stated Complaint: Left knee injury Triage Nursing Assessment: Patient brought back to ED via w/c and transferred self to bed. Patient A+O x3. Patient's skin pink, warm and dry. Patient states she was walking in her kitchen and tripped over a cord landing on her right knee. Patient has bruising and swelling to right knee. Patient states it's hard to bear weight on right knee. Patient complains of pain 06/23. Physician History: 65 yo wf tripped over cord in her house earlier today and injured her R knee. Pt also hit her head but denies LOC/BLANCO/cervical pain. She is on Plavix but does not feel that she needs a head CT due to lack of pain/no LOC. Pt also denies T/L- spine pain/Hip pain/chest pain/abdominal pain/syncope. Occurred: this morning Reason for Fall: tripped Injuries/Pain Location: lower extremity (R knee) Loss of Consciousness: no loss of consciousness Quality: aching Severity of Pain-Max: moderate Severity of Pain-Current: moderate Modifying Factors: Improves With: movement Associated Symptoms (Fall): extremity injury, trouble walking, No abdominal pain, No back pain, No confusion, No chest pain, No dizziness, No headache, No lightheadedness, No muscle spasms, No nausea, No neck pain, No ringing in ears, No seizures, No shortness of breath, No slurred speech, No vomiting, No vision changes Allergies/Adverse Reactions: amoxicillin Allergy (Intermediate, Verified 07/05/21 16:15) Rash lisinopril Allergy (Mild, Verified 07/05/21 16:15) "coughing" pear Allergy (Mild, Verified 07/05/21 16:15) Owrvlar-JXI-WfY Reductase Inhibitor [Qlahzsa-Xbl-Ddd Reductase Inhibitor] Allergy (Mild, Verified 07/05/21 16:15) "hip pain" Sulfa (Sulfonamide Antibiotics) Allergy (Mild, Verified 07/05/21 16:15) Stomach Cramps upset stomach tuberculin, purified protein deriva [Tuberculin,Purif.Prot.Deriv.] Allergy (Mild, Verified 07/05/21 16:15) losartan [From Cozaar] Adverse Reaction (Mild, Verified 07/05/21 16:15) meloxicam Adverse Reaction (Mild, Verified 07/05/21 16:15) Stomach Cramps upset stomach Home Medications: Metformin HCl 850 mg [Glucophage 850 MG] 850 mg PO HS 02/02/13 [History] HydrALAzine HCL 25 MG TAB [Apresoline 25 MG TABLET] 50 mg PO DAILY 10/28/13 [History] Fexofenadine HCl [Yelena Allergy] 60 mg PO DAILY PRN PRN 06/24/17 [History] Clopidogrel Bisulfate 75 mg [PLAVIX 75 MG Tablet] 75 mg PO DAILY 03/27/20 [History] Oxybutynin Chloride Xl 5 mg [Ditropan XL 5 MG] 5 mg PO HS 03/27/20 [Histor y] Fluticasone Propionate [Flonase NASAL] 16 gm NS UD 05/24/20 [History] Metformin HCl 500 mg [Glucophage 500 MG] 500 mg PO LUNCH 05/24/20 [History] Metoprolol Tartrate 25 mg [Lopressor 25MG Tab] 25 mg PO DAILY 06/04/20 [History] Hx Tetanus, Diphtheria Vaccination/Date Given: Yes ("5 years ago") Hx Influenza Vaccination/Date Given: Yes Hx Pneumococcal Vaccination/Date Given: No Immunizations Up to Date: Yes Travel Risk - International Travel Have you traveled outside of the country in past 3 weeks: No - Coronavirus Screening Are you exhibiting any of the following symptoms?: No Close contact with a COVID-19 positive Pt in past 14-21 Days: No - Vaccine Status Have you recieved a Covid-19 vaccination: Yes 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: [employer] - Vaccination Dates Date of 2cond Vaccination (if applicable): May 2021 - Review of Systems Constitutional: No Symptoms Eyes: No Symptoms Ears, Nose, & Throat: No Symptoms Respiratory: No Symptoms Cardiac: No Symptoms Abdominal/Gastrointestinal: No Symptoms Genitourinary Symptoms: No Symptoms Musculoskeletal: No Symptoms, Arthralgias (R knee) Skin: No Symptoms Neurological: No Symptoms Psychological: No Symptoms Endocrine: No Symptoms Hematologic/Lymphatic: No Symptoms Immunological/Allergic: No Symptoms - Past Medical History Pertinent Past Medical History: Yes Neurological History: TIA ENT History: No Pertinent History, Cataracts, Macular Degeneration Cardiac History: High Cholesterol, Hypertension Respiratory History: Asthma, Bronchitis Endocrine Medical History: Diabetes Type II, Other Musculoskeletal History: Arthritis, Fractures GI Medical History: No Pertinent History, GERD History: No Pertinent History Psycho-Social History: No Pertinent History Female Reproductive Disorders: No Pertinent History Other Medical History: Thyroid nodules, L humerus fx, L rotator cuff tear (therapy only, no surgery) - Past Surgical History Past Surgical History: Yes Neuro Surgical History: No Pertinent History Cardiac: Cardiac Catheterization Respiratory: No Pertinent History Gastrointestinal: Cholecystectomy Genitourinary: No Pertinent History Musculoskeletal: No Pertinent History Female Surgical History: Hysterectomy, Tubal Ligation Other Surgical History: Partial Thyroidectomy unknown side., colonoscopy - Social History Smoking Status: Never smoker Exposure to second hand smoke: Yes Alcohol Use: None Drug Use: none Patient Lives Alone: No Significant Family History: no pertinent family hx, diabetes - Female History Hx Now: No - Nursing Vital Signs Nursing Vital Signs: Initial Vital Signs Temperature 98.3 F 07/05/21 16:09 Pulse Rate 107 H 07/05/21 16:09 Respiratory Rate 18 07/05/21 16:09 Blood Pressure 161/84 07/05/21 16:09 O2 Sat by Pulse Oximetry 97 07/05/21 16:09 Pain Scale Pain Intensity 5 Hypertension/tachycardic - [place] Coma Score Best Eye Response (Ira): (4) open spontaneously Best Verbal Response ([place]): (5) oriented Best Motor Response (Ira): (6) obeys commands [place] Total: 15 - Physical Exam General Appearance: no apparent distress Head Injury: contusions (Very small glabellar contusion/NTTP), No active bleeding, No Pettit's Sign, No ecchymosis, No flap, No lacerations, No raccoon eyes, No swelling, No tenderness Eye Exam: PERRL/EOMI, eyes nml inspection ENT Exam: airway nml, No evidence of ENT injury, No clear fluid (ears), No clear fluid (nose) Neck Exam: supple, trachea midline (C-spine nttp) Respiratory/Chest Exam: normal breath sounds, No chest tenderness, No respiratory distress Cardiovascular Exam: normal heart sounds, regular rate/rhythm, normal peripheral pulses, No murmur Gastrointestinal Exam: soft, normal bowel sounds, No tenderness Back Exam: normal inspection, normal range of motion, No CVA tenderness, No vertebral tenderness Extremity Exam: pelvis stable, tenderness (R knee edematous/TTP/No deformity/Good pedal pulse, distal sensation, and capillary return) Peripheral Pulses: carotid (R): 2+, carotid (L): 2+ Neurologic Exam: alert, oriented x 3, cooperative, 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 as tested, normal mood/affect, nml cerebellar function, sensation nml Skin Exam: normal color, warm, dry, No rash SpO2 Interpretation: normal SpO2: 98 O2 Delivery: Room Air - Course Nursing assessment & vital signs reviewed: Yes - Radiology Exams Knee X-ray Interpretation: Teleradiologist Report (R knee neg per telerad) Ordered Tests: Active Orders 24 hr Category Date Time Status P[place] Bandage Application -[facility] STAT Care 07/05/21 18:13 Completed KNEE (3 VIEWS) Stat Exams 07/05/21 Taken Medication Summary Discontinued Medications Generic Name Dose Route Start Last Admin Trade Name Freq PRN Reason Stop Dose Admin Ketorolac Tromethamine 15 mg 07/05/21 18:13 07/05/21 18:20 Ketorolac Tromethamine 30 Mg/Ml Inj IM 07/05/21 18:14 15 mg STAT ONE Administration Ketorolac Tromethamine Confirm 07/05/21 18:19 Ketorolac Tromethamine 30 Mg/Ml Inj Administered 07/05/21 18:20 Dose 30 mg .ROUTE .STK-MED ONE - Progress Progress: improved Progress Note: 07/05/21 18:18 15mg IM Toradol [place] wrap R knee per Nursing/NVI 07/05/21 18:20 Pt refuses Hydrocodone and states that she does not need crutches or a walker 07/05/21 18:23 Pt wants to f/u w PCP Counseled pt/family regarding: diagnosis, need for follow-up, rad results - Departure Departure Disposition: Home Clinical Impression: Strain of right knee, Knee contusion Condition: Stable Critical Care Time: No Referrals: MALVIN BREWER NP [Primary Care Provider] - Instructions: Knee Sprain (DC), Knee Pain (DC) Additional Instructions: Ice for 12-24 hours Tylenol for pain Weight bearing as tolerated Follow up with family MD for continued pain
[2021-07-05 18:12] VITALS: BP 138/82
[2021-07-05] MEDS ORDERED: TORAdol 30 mg Injection IM ONE (18:13)
[2021-07-05] MEDS ORDERED: TORAdol 30 mg Injection ONE (18:19)
--- NOTE | 2021-07-06 08:02 | XRAY ---
Indication: Pain following fall. Comparison: None 3 view right knee demonstrates mid-patella curvilinear radiolucencies with soft tissue swelling and large effusion concerning for nondisplaced fracture. Elsewhere osteopenia mild patellofemoral degenerative changes. Comment: Preliminary interpretation made by [facility]. Patella finding not reported. Telephone report given to Dr. Chung at 0800 hrs. on July 06, 2021.
== END 2021-07-05 18:33 | disposition home or self-care (01) ==
LOC: ED 16:00
DX: S83.91XA Sprain of unspecified site of right knee, initial encounter (principal); S80.01XA Contusion of right knee, initial encounter; W01.0XXA Fall on same level from slipping, tripping and stumbling without subsequent striking against object, initial encounter; Y93.01 Activity, walking, marching and hiking; Y92.000 Kitchen of unspecified non-institutional (private) residence as the place of occurrence of the external cause
CPT/HCPCS: 73562; 96372; 99284; J1885; L1830